=== PATIENT | male | born 1980 ===

== ENCOUNTER 2020-10-25 01:51 | Emergency (ER) | payer MEDICARE, MEDICAID ==
[~2020-10-25] VITALS: Ht 172.7 cm; Wt 90.0 kg
[2020-10-25] MEDS ORDERED: hydrOXyzine 50MG TABLET PO ONE (02:00)
[2020-10-25 02:19] LABS: BASOPHILS % (AUTO) 1 % (0-1); EOSINOPHILS % (AUTO) 2 % (1-7); LYMPHOCYTES % (AUTO) 40 % (22-44); MEAN CORPUSCULAR HEMOGLOBIN 31.8 pg (27.5-34.5); MEAN CORPUSCULAR HGB CONC 33.8 g/dL (33.2-36.2); MEAN PLATELET VOLUME 8.6 fL (7.4-10.4); MONOCYTES % (AUTO) 8 % (2-9); NEUTROPHILS % (AUTO) 48 % (42-75); PLATELET COUNT 246 x10^3/uL (130-400); RED BLOOD COUNT 4.56 x10^6/uL (4.38-5.82); RED CELL DISTRIBUTION WIDTH 14.1 % (9.4-14.8)
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
[2020-10-25] MEDS ORDERED: HYDR50TA99 PO (02:25)
[2020-10-25] MEDS ORDERED: QUET300T7 PO (02:25)
[2020-10-25] MEDS ORDERED: hydrOXyzine 50MG TABLET ONE (02:26)
[2020-10-25] MEDS ORDERED: QUETIAPINE 100MG TABLET ONE ×2 (02:27→08:50)
[2020-10-25 02:29] LABS: ALBUMIN 4.2 g/dL (3.4-5.0); ANION GAP 3 mmol/L (5-15); CALCIUM 9.3 mg/dL (8.5-10.1); CHLORIDE 102 mmol/L (98-107); CREATININE 1.06 mg/dL (0.7-1.3); SALICYLATE LEVEL 2.2 mg/dL (2.8-20.0)
[2020-10-25 02:45] LABS: AMPHETAMINE SCREEN, URINE Negative (Negative); BARBITURATE SCREEN, URINE Negative (Negative); BENZODIAZEPINE SCREEN, URINE Negative (Negative); CANNABINOID SCREEN, URINE Negative (Negative); COCAINE SCREEN, URINE Negative (Negative); METHADONE SCREEN, URINE Negative (Negative); OPIATE SCREEN, URINE Negative (Negative)
--- NOTE | 2020-10-25 03:28 | NUR ---
PT RESTING ON GURNEY UNDER WARM BLANKETS, EYES CLOSED, LIGHTS DIMMED FOR COMFORT, NAD, APPEARS COMFORTABLE, BED IN LOWEST, ROOM SECURED, SITTER IN LINE OF SIGHT, [facility]CT[facility]. L2K
--- NOTE | 2020-10-25 05:05 | NUR ---
PT RESTING ON [facility], hospital bed requested, EYES CLOSED, NAD, APPEARS COMFORTABLE, BED IN LOWEST, ROOM SECURED, SITTER IN LINE OF SIGHT, WCTM. L2K
--- NOTE | 2020-10-25 06:35 | NUR ---
PT MOVED TO HOSPITAL BED, RESTING COMFORTABLY, NAD, BED IN LOWEST, RAILS ENGAGED, ROOM SECURED, SITTER IN LINE OF SIGHT, WCTM. L2K
--- NOTE | 2020-10-25 06:53 | NUR ---
REPORT TO TANMAY LANGFORD, PT CARE TRANSFERRED AT THIS TIME.
--- NOTE | 2020-10-25 07:12 | NUR ---
PATIENT RESTING IN HOSPITAL BED WITH EYES CLOSED, RESP EVEN AND UNLABORED, SUICIDE PRECAUTIONS IN PLACE, SITTER IN LINE OF SIGHT.
--- NOTE | 2020-10-25 07:13 | NUR ---
BREAKFAST TRAY ORDERED.
--- NOTE | 2020-10-25 07:35 | NUR ---
CALLED [facility] TO NOTIFY THEM OF PT. PER STAFF, THEY WILL REVIEW THE CHART.
[2020-10-25 08:22] VITALS: BP 128/82
--- NOTE | 2020-10-25 08:26 | NUR ---
BREAKFAST TRAY PROVIDED TO PATIENT, PATIENT DENIES SI/HI, SUICIDE PRECAUTIONS IN PLACE, SITTER IN LINE OF SIGHT. PATIENT VSS.
[2020-10-25] MEDS ORDERED: QUETIAPINE 100MG TABLET PO SCH (09:00)
--- NOTE | 2020-10-25 09:40 | NUR ---
PATIENT RESTING IN HOSPITAL BED, EYES CLOSED, RESP EVEN AND UNLABORED, SUICIDE PRECAUTIONS IN PLACE, SITTER IN LINE OF SIGHT.
--- NOTE | 2020-10-25 09:53 | NUR ---
PATIENT AMBULATED TO BATHROOM WITH STEADY GAIT.
--- NOTE | 2020-10-25 10:25 | NUR ---
DECLINED BY [facility].
--- NOTE | 2020-10-25 10:36 | NUR ---
PACKET FAXED TO [facility], [facility], AND [facility]. AWAITING ACCEPTANCE.
--- NOTE | 2020-10-25 10:36 | NUR ---
LUNCH TRAY ORDERED.
--- NOTE | 2020-10-25 10:58 | NUR ---
REPORT TO [facility] FOR TRANSFER OF PATIENT CARE. Addendum: 10/25/20 at 1109 by [email or web address] PER [facility] AT [place], PATIENT TO BE ACCEPTED PENDING MALE BED DISCHARGES. [place] TO CALL BACK ONCE BED IS READY.
--- NOTE | 2020-10-25 11:37 | NUR ---
ALEXIA HOUSTON AT [facility], PT HAS BEEN ACCEPTED TO THEIR FACILITY BY DR. MAHAN P 1400 TODAY.
--- NOTE | 2020-10-25 12:01 | NUR ---
CHERYL FROM [facility] TRANSFER IS ARRANGED FOR 1415 TO [facility].
--- NOTE | 2020-10-25 12:04 | NUR ---
LUNCH TRAY PROVIDED TO PATIENT, [place], SUICIDE PRECAUTIONS IN PLACE, SITTER IN LINE OF SIGHT, NO FURTHER NEEDS AT THIS TIME. PATIENT TO BE TRANSFERRED TO [facility]IA [facility] AT 1400.
--- NOTE | 2020-10-25 13:05 | NUR ---
BREAK RN: PT SLEEPING ON HOSPITAL BED W/ GARAGE DOORS DOWN AND SITTER OUTSIDE ROOM FOR SAFETY. CHEST RISE AND FALL OBSERVED. [place]VIKA.
--- NOTE | 2020-10-25 14:06 | NUR ---
PATIENT RESTING IN HOSPITAL BED, EYES CLOSED, RESP EVEN AND UNLABORED. SUICIDE PRECAUTIONS IN PLACE, SITTER IN LINE OF SIGHT. WAITING FOR [facility] TO TRANSPORT PATIENT TO [facility].
--- NOTE | 2020-10-25 14:31 | NUR ---
PATIENT TRANSFERRED TO [facility]IA [facility] WITH 3 PARAMEDICS. ALL 5 PATIENT BELONGING BAGS TAKEN FROM LOCKED CABINET AND TAKEN WITH PATIENT TO [facility].
== END 2020-10-25 14:32 ==
LOC: ED 08:52
DX: F20.9 Schizophrenia, unspecified (principal); R45.851 Suicidal ideations; E11.9 Type 2 diabetes mellitus without complications
CPT/HCPCS: 36415; 80048; 80299; 80307; 80320; 80329; 82040; 85025; 99285; G0480